=== PATIENT | female | born 1955 | race Caucasian/White ===

== ENCOUNTER → 2017-09-08 | Outpatient (CLI) | payer OTHER | LOC: BMCIMAGING 08:08 | PROVIDERS: ATTEND Obstetrics & Gynecology | DX: Z12.31 Encounter for screening mammogram for malignant neoplasm of breast (principal); Z80.3 Family history of malignant neoplasm of breast ==

== ENCOUNTER 2018-06-02 10:07 | Emergency (ER) | payer OTHER ==
[2018-06-02 10:43] LABS: PLATELET COUNT 296 10^3/uL (150-400)
--- NOTE | 2018-06-02 10:46 | EDPHY ---
H & P Smoking Status: Never smoked Time Seen by Provider: 06/02/18 10:27 HPI/ROS: CHIEF COMPLAINT: Epigastric abdominal pain HISTORY OF PRESENT ILLNESS: 62-year-old female presents to the emergency department with sudden onset of abdominal pain and chest pain that woke up out of her sleep early this morning. The patient states that this was then followed by several episodes of vomiting and diarrhea. She feels chilled, denies aches or fever. Denies any URI symptoms. She denies any other chest pain however she does feel short of breath when "the pain comes". Denies radiation of pain. Denies back pain. Denies flank pain. Denies urinary symptoms. No other abdominal pain. She has never had this in the past. No reported trauma. She did receive a flu shot this year. REVIEW OF SYSTEMS: Constitutional: No fever, no chills. Eyes: No double or blurry vision. ENT: No sore throat. Respiratory: No cough, no shortness of breath. Cardiac: Chest pain as above Gastrointestinal: Abdominal pain, vomiting, diarrhea Genitourinary: No dysuria. Musculoskeletal: No neck or back pain. Skin: No rashes. Neurological: No headache. (Jing León) Past Medical/Surgical History: Negative (Jing León) Social History: and lives in [place]. Retired. (Jing León) Physical Exam: General Appearance: Alert, no distress. 36.9 temp Eyes: Pupils equal and round. Extraocular motions are all intact. ENT: Mouth: Mucous membranes moist. Respiratory: No wheezing, rhonchi, or rales, lungs are clear to auscultation. Cardiovascular: Regular rate and rhythm. Gastrointestinal: Abdomen is soft. Tenderness with palpation in specifically the right upper quadrant. There is no masses, rebound or guarding noted. No CVA tenderness bilaterally. Neurological: Alert and oriented x 3, cranial nerves II through XII grossly intact Skin: Warm and dry, no rashes. Musculoskeletal: Nontender to palpate along the cervical, thoracic or lumbar spine. Neck is supple. Extremities: Full range of motion and no peripheral edema. Psychiatric: Patient is oriented X 3, there is no agitation. (Jing León) Constitutional: Initial Vital Signs Temperature (C) 36.9 C 06/02/18 10:09 Heart Rate 108 H 03/14/19 10:09 Respiratory Rate 18 06/02/18 10:09 Blood Pressure 145/78 H 06/02/18 10:09 O2 Sat (%) 96 06/02/18 10:09 O2 Delivery Mode Room Air Allergies/Adverse Reactions: No Known Allergies Allergy (Unverified 11/14/15 10:49) Home Medications: Medication Instructions Recorded Multi-Vitamin Daily 11/14/15 Medical Decision Making - Diagnostics EKG Interpretation: EKG: Complete interpretation has been separately recorded in the [facility] archive. Summary impression: Sinus rhythm, rate 94, nonspecific ST T wave changes noted. Repeat EKG at 1:00 p.m.: EKG: Complete interpretation has been separately recorded in the [facility] archive. Summary impression: Sinus rhythm, persistent T-wave inversions noted , no dynamic changes present (Brandon Guzman) ED Course/Re-evaluation: 62-year-old female presents to the emergency department with abdominal pain, vomiting and diarrhea. Initially she was a woken out of her sleep with epigastric abdominal pain and some chest pain. EKG reveals some T-wave inversions. She had an IV established and laboratory studies were drawn. She had elevated white blood cell count of nearly 18,000 with left shift. I think this is likely from demargination. Chemistries were within normal limits. She had 2-troponins. Her EKG was repeated after 3 hr and was unchanged. The case was discussed with Dr. Guzman, secondary supervising physician, who also evaluated the patient. The patient will be discharged home with her with close follow-up with Cardiology. I think the vomiting and diarrhea that she has is likely from gastrointestinal illness. Encouraged to use mostly clear liquids the next 12 hr and then slowly advance diet as tolerated. (Jing León) Other Provider: Independent physician evaluation: I evaluated and participated in the management of the patient. I also evaluated the patient independently. My co-signature indicates that I have reviewed this chart and I agree with the findings and plan of care as documented. My personal H&P findings include: The patient presents to the ED with complaints of epigastric and lower chest pain that began at 3:00 a.m. this morning. The patient went on to develop vomiting and diarrhea. Her chest discomfort resolved. The patient has no risk factors for cardiac disease. She exercises frequently without chest pain or shortness of breath. Physical exam: General Appearance: Alert, no distress Eyes: Pupils equal and round no pallor or injection ENT, Mouth: Mucous membranes moist Respiratory: There are no retractions, lungs are clear to auscultation Cardiovascular: Regular rate and rhythm Gastrointestinal: Minimal epigastric tenderness Neurological: A&O, normal motor function, normal sensory exam, normal cranial nerves Skin: Warm and dry, no rashes Musculoskeletal: Neck is supple nontender Extremities: symmetrical, full range of motion Psychiatric: Patient is oriented X 3, there is no agitation ED course: Patient presents the emergency department for evaluation of resolved epigastric pain and vomiting and diarrhea. The patient is nontoxic well-appearing upon arrival. She has no complaints of chest pain currently. Her initial troponin is normal. Her EKG does demonstrate some T-wave inversions noted in the lateral leads. Her initial troponin is negative. The patient received IV fluids and antiemetics in the ED. She remained here for 3 hr without any recurrent symptoms. The patient exercises frequently without symptoms of chest pain. She does have some abnormalities noted on her EKG. She had serial troponins and EKGs in the ED which demonstrate no dynamic changes. I did inform her of the abnormal EKG and prudent to obtain a outpatient stress test. She will be referred to Cardiology and I have placed a referral through their office. The patient does understand return to the ED immediately for any worsening chest pain or other concerns. (Brandon Guzman) - Data Points Laboratory Results: Laboratory Results 06/02/18 10:30 06/02/18 10:30 06/02/18 06/02/18 06/02/18 13:19 12:00 10:41 WBC RBC Hgb Hct MCV MCH MCHC RDW Plt Count MPV Neut % (Auto) Lymph % (Auto) [place] % (Auto) Eos % (Auto) Baso % (Auto) Nucleat RBC Rel Count Absolute Neuts (auto) Absolute Lymphs (auto) Absolute Monos (auto) Absolute Eos (auto) Absolute Basos (auto) Absolute Nucleated RBC Immature Gran % Immature Gran # Sodium Potassium Chloride Carbon Dioxide Anion Gap BUN Creatinine Estimated GFR Glucose Calcium Total Bilirubin Conjugated Bilirubin Unconjugated Bilirubin AST ALT Alkaline Phosphatase POC Troponin I 0.00 ng/mL ng/mL 0.00 ng/mL ng/mL (0.00-0.08) (0.00-0.08) Total Protein Albumin Lipase Urine Color YELLOW Urine Appearance CLEAR Urine pH 5.0 (5.0-7.5) Ur Specific [place] 1.018 (1.002-1.030) Urine Protein NEGATIVE (NEGATIVE) Urine Ketones TRACE H (NEGATIVE) Urine Blood NEGATIVE (NEGATIVE) Urine Nitrate NEGATIVE (NEGATIVE) Urine Bilirubin NEGATIVE (NEGATIVE) Urine Urobilinogen NEGATIVE EU EU (0.2-1.0) Ur Leukocyte Esterase NEGATIVE (NEGATIVE) Urine Glucose NEGATIVE (NEGATIVE) 06/02/18 06/02/18 06/02/18 10:30 10:30 10:30 WBC 17.56 10^3/uL H 10^3/uL (3.80-9.50) RBC 5.23 10^6/uL 10^6/uL (4.18-5.33) Hgb 15.9 g/dL g/dL (12.6-16.3) Hct 48.9 % H % (38.0-47.0) MCV 93.5 fL fL (81.5-99.8) MCH 30.4 pg pg (27.9-34.1) MCHC 32.5 g/dL g/dL (32.4-36.7) RDW 12.8 % % (11.5-15.2) Plt Count 296 10^3/uL 10^3/uL (150-400) MPV 10.4 fL fL (8.7-11.7) Neut % (Auto) 87.3 % H % (39.3-74.2) Lymph % (Auto) 4.0 % L % (15.0-45.0) [place] % (Auto) 7.5 % % (4.5-13.0) Eos % (Auto) 0.3 % L % (0.6-7.6) Baso % (Auto) 0.3 % % (0.3-1.7) Nucleat RBC Rel Count 0.0 % % (0.0-0.2) Absolute Neuts (auto) 15.31 10^3/uL H 10^3/uL (1.70-6.50) Absolute Lymphs (auto) 0.71 10^3/uL L 10^3/uL (1.00-3.00) Absolute Monos (auto) 1.32 10^3/uL H 10^3/uL (0.30-0.80) Absolute Eos (auto) 0.05 10^3/uL 10^3/uL (0.03-0.40) Absolute Basos (auto) 0.06 10^3/uL 10^3/uL (0.02-0.10) Absolute Nucleated RBC 0.00 10^3/uL 10^3/uL (0-0.01) Immature Gran % 0.6 % % (0.0-1.1) Immature Gran # 0.11 10^3/uL H 10^3/uL (0.00-0.10) Sodium 138 mEq/L mEq/L (135-145) Potassium 4.6 mEq/L mEq/L (3.5-5.2) Chloride 108 mEq/L mEq/L (97-110) Carbon Dioxide 19 mEq/l L mEq/l (22-31) Anion Gap 11 mEq/L mEq/L (6-14) BUN 15 mg/dL mg/dL (7-23) Creatinine 0.9 mg/dL mg/dL (0.6-1.0) Estimated GFR > 60 Glucose 119 mg/dL H mg/dL (70-100) Calcium 9.4 mg/dL mg/dL (8.5-10.4) Total Bilirubin 1.1 mg/dL mg/dL (0.1-1.4) Conjugated Bilirubin 0.4 mg/dL mg/dL (0.0-0.5) Unconjugated Bilirubin 0.7 mg/dL mg/dL (0.0-1.1) AST 26 IU/L IU/L (14-46) ALT 30 IU/L IU/L (9-52) Alkaline Phosphatase 105 IU/L IU/L (38-126) POC Troponin I Total Protein 6.9 g/dL g/dL (6.3-8.2) Albumin 4.3 g/dL g/dL (3.5-5.0) Lipase 110 IU/L IU/L (23-300) Urine Color Urine Appearance Urine pH Ur Specific [place] Urine Protein Urine Ketones Urine Blood Urine Nitrate Urine Bilirubin Urine Urobilinogen Ur Leukocyte Esterase Urine Glucose Medications Given: Discontinued Medications Sodium Chloride (Ns) 1,000 mls @ 0 mls/hr IV ONCE ONE PRN Reason: Wide Open Stop: 03/14/19 12:10 Last Admin: 06/02/18 12:10 Dose: 1,000 mls Point of Care Test Results: Chemistry 06/02/18 06/02/18 13:19 10:41 POC Troponin I 0.00 ng/mL ng/mL 0.00 ng/mL ng/mL (0.00-0.08) (0.00-0.08) Departure - Departure Disposition: Home, Routine, Self-Care Clinical Impression: Gastroenteritis, Chest pain Condition: Good Instructions: Chest Pain (ED), Gastroenteritis (ED) Additional Instructions: 1. Based upon the testing done in the Emergency Department today we see no evidence of a heart attack. I do believe most of your symptoms are secondary to food poisoning or a intestinal illness. You have some nonspecific changes noted on your EKG. Your cardiac lab testing is normal. 2. We are unable to fully exclude coronary artery disease based upon the testing available in the Emergency Department. 3. For this reason, we would like you to be seen by cardiology for consideration of additional testing within the next 3 days. 4. Please contact the homicide investigator you have been referred to schedule this appointment as soon as possible. Their offices are typically open from 8:30am- 5pm M-F. 5. Please return to the Emergency Department immediately for any recurrent chest pain, difficulty breathing or other concerns. Referrals: Tate Johnson MD [Medical Doctor] - As per Instructions
[2018-06-02] MEDS ORDERED: NS 1,000 ML IV ONE (12:09)
--- NOTE | 2018-06-02 13:11 | CPEKG ---
Test Reason : OPEN Blood Pressure : / mmHG Vent. Rate : 094 BPM Atrial Rate : 094 BPM P-R Int : 144 ms QRS Dur : 082 ms QT Int : 390 ms P-R-T Axes : 015 -08 -44 degrees QTc Int : 488 ms Sinus rhythm Abnormal T, consider ischemia, diffuse leads Confirmed by Brandon Guzman ([id number]) on 06/02/2018 1:10:22 PM Referred By: Brandon Guzman Confirmed By:Brandon Guzman
--- NOTE | 2018-06-02 13:22 | CPEKG ---
Test Reason : OPEN Blood Pressure : / mmHG Vent. Rate : 097 BPM Atrial Rate : 097 BPM P-R Int : 139 ms QRS Dur : 085 ms QT Int : 415 ms P-R-T Axes : 032 -14 -79 degrees QTc Int : 527 ms Sinus rhythm Abnormal T, consider ischemia, diffuse leads Confirmed by Brandon Guzman ([id number]) on 06/02/2018 1:21:24 PM Referred By: Brandon Guzman Confirmed By:Brandon Guzman
[2018-06-02 13:48] VITALS: BP 126/71
== END 2018-06-02 13:47 | disposition home or self-care (01) ==
DX: K52.9 Noninfective gastroenteritis and colitis, unspecified (principal); R07.9 Chest pain, unspecified
CPT/HCPCS: 84484-ER